=== PATIENT | male | born 1980 | race Caucasian/White ===

== ENCOUNTER → 2020-10-28 10:15 | Outpatient (BNVA) | payer OTHER, SELFPAY | PROVIDERS: Visit Provider Surgery | DX: K64.9 Unspecified hemorrhoids (principal); Z86.010 Personal history of colon polyps | CPT/HCPCS: 87635 ==

== ENCOUNTER 2020-11-04 07:44 | Day surgery (SDC) | payer OTHER, SELFPAY ==
[2020-11-01 14:06] VITALS: BMI 27.2
[2020-11-04] VITALS (7 sets, daily range): BP systolic 99–128; BP diastolic 64–73; PULSE 62–76; RESP 17–18; TEMP 36.2–36.8; O2SAT 96–99
--- NOTE | 2020-11-04 07:54 | W.PM.OPSUD ---
Surgery/Procedure H&P Update DATE OF PROCEDURE: November 04, 2020 DATE H&P PERFORMED: 10/28/20 H&P UPDATE INFORMATION: I have reviewed H&P completed within last 30 days, I have examined patient prior to procedure and No changes to prior documentation PREOP DIAGNOSIS: Hemorrhoids, colon polyps PLANNED PROCEDURE: Operation Date: 11/04/20 09:10 Proposed Procedures p Banding of Hemorrhoids [id number] Z86.010(Not Applicable) - Leandro Kumari MD s Colonoscopy(Not Applicable) - Leandro Kumari MD
[2020-11-04] MEDS: sodium chloride 0.9% 1,000 ML 30 ML IV (08:10)
--- NOTE | 2020-11-04 08:23 | ANES.PREANE2 ---
Pre-Anesthetic Assessment Pre-Anesthetic Assessment: Height/Weight: Height 1.91 m Weight 98.883 kg Temp Pulse Resp BP Pulse Ox 97.2 F L 62 18 128/72 96 11/04/20 08:02 11/04/20 08:02 11/04/20 08:02 11/04/20 08:02 11/04/20 08:02 Preop Diagnosis: Hemorrhoids, colon polyps Proposed Procedure: Operation Date: 11/04/20 09:10 Proposed Procedures p Banding of Hemorrhoids [id number] Z86.010(Not Applicable) - Leandro Kumari MD s Colonoscopy(Not Applicable) - Leandro Kumari MD Familial anesthetic complications: None Was Beta Otoniel taken within 24 hours: N/A Was Clonidine taken within 24 hours: N/A Last intake: Intake NPO > 8 hrs Last Liquid Date 11/03/20 Last Solid Date 11/02/20 Social: Social History: No alcohol and No tobacco Exam: Pre-Anes Outpt Exam: alert, oriented x 3, clear to auscultation bilaterally and regular rate & rhythm Airway: Cervical ROM: WNL MP: 3 Dentition: Other (crown) Anesthetic Plan: ASA status: 1 Anesthesia: MAC Risk of > 500 ml blood loss (7ml/kg in children): No Meds/Allergies Current Medications: Current Medications Generic Name Dose Route Start Last Admin Trade Name Freq PRN Reason Stop Dose Admin Sodium Chloride 1,000 mls @ 30 ml s/hr 11/04/20 08:00 11/04/20 08:10 Sodium Chloride 0.9% IV 11/05/20 07:59 30 mls/hr .Q24H CALLIE Administration PFSH Anesthesia PFSH: Medical History (Updated 10/28/20 @ 09:46 by Leandro Kumari MD) Folate deficiency anemia Hemorrhoids History of colon polyps Major depressive disorder Surgical History (Updated 10/28/20 @ 09:46 by Leandro Kumari MD) History of colonoscopy History of hemorrhoidectomy History of shoulder surgery Right Family History (Updated 10/28/20 @ 09:38 by CARY Hall) Denies family history of Anesthesia complication Bleeding disorder Social History (Updated 10/28/20 @ 09:38 by CARY Hall) Smoking and tobacco status: former smoker Alcohol intake: current Alcohol intake frequency: holidays/special occasions only Data Anesthesia Cardiac Studies: No Data to Display
--- NOTE | 2020-11-04 09:48 | PM.OP ---
Operative Report Date of procedure: November 04, 2020 Pre-op Diagnosis: 1. Colon polyps 2. Symptomatic grade 1 hemorrhoids Post-op Diagnosis: Normal colonoscopy Grade 1 hemorrhoids x3 Procedure Done: Colonoscopy past splenic flexure without biopsy Banding of hemorrhoids x3 Pathology: none sent Surgeon: Leandro Kumari Anesthesia: General Condition: stable Disposition: PACU Procedure: The patient was in the operating room and placed in the flat position under MAC. A colonoscope was introduced and advanced up to the cecum and slowly withdrawn. The colon prep was fair. Cecum: Normal Ascending colon: Normal Transverse colon: Normal Descending colon: Normal Sigmoid colon: Normal Rectum: Grade 1 hemorrhoids FELECIA: Grade 1 hemorrhoids Using the anoscope the grade 1 hemorrhoids was visualized and banding of hemorrhoids x3 was performed using a band applicator with the bands being applied proximal to the dentate line. The patient was transferred to recovery room in stable condition
--- NOTE | 2020-11-04 17:43 | ANE.PACU2 ---
Inpatient post-anesthesia follow up: Airway intact: Yes Vital signs: Temperature 98.2 F Pulse Rate 64 Respiratory Rate 18 Blood Pressure 107/72 Pulse Oximetry 97 Oxygen Delivery Me thod Room Air Oxygen Flow Rate 6 Fraction of Inspir ed Oxygen Hydration adequate: Yes Nausea and vomiting: No Pain level: 3 Mental status: Baseline
== END 2020-11-04 10:50 | disposition home or self-care (01) ==
PROVIDERS: Visit Provider Surgery
PROC: (CPT 45378; principal; 2020-11-04 09:00)
PROC: 0DJD8ZZ Inspection of Lower Intestinal Tract, Via Natural or Artificial Opening Endoscopic (ICD-10-PCS; CPT 45378; 2020-11-04 09:00)
DX: Z86.010 Personal history of colon polyps (principal); K64.0 First degree hemorrhoids; F32.9 Major depressive disorder, single episode, unspecified; Z87.891 Personal history of nicotine dependence; Z80.0 Family history of malignant neoplasm of digestive organs
CPT/HCPCS: 45378; 46221; J2704; J3010; J7030

== ENCOUNTER → 2022-03-26 15:18 | Outpatient (BNVA) | payer OTHER, SELFPAY | PROVIDERS: PCP Family Medicine; Visit Provider Surgery | DX: K40.90 Unilateral inguinal hernia, without obstruction or gangrene, not specified as recurrent (principal) | CPT/HCPCS: 99203 ==

== ENCOUNTER → 2022-04-08 16:19 | Outpatient (BNVA) | payer OTHER, SELFPAY | PROVIDERS: PCP Family Medicine; Referring Provider Family Medicine; Visit Provider Podiatrist Foot & Ankle Surgery | DX: S82.892A Other fracture of left lower leg, initial encounter for closed fracture (principal); S92.355A Nondisplaced fracture of fifth metatarsal bone, left foot, initial encounter for closed fracture; X50.9XXA Other and unspecified overexertion or strenuous movements or postures, initial encounter; M76.72 Peroneal tendinitis, left leg | CPT/HCPCS: 28470; 73630; 99204 ==

== ENCOUNTER → 2022-04-10 11:20 | Outpatient (BNVA) | payer OTHER, SELFPAY | PROVIDERS: PCP Family Medicine; Referring Provider Family Medicine; Visit Provider Orthopaedic Surgery | DX: S63.502A Unspecified sprain of left wrist, initial encounter (principal); W05.1XXA Fall from non-moving nonmotorized scooter, initial encounter | CPT/HCPCS: 73110; 99202 ==

== ENCOUNTER → 2023-05-10 14:38 | Outpatient (BNVA) | payer OTHER, SELFPAY | PROVIDERS: PCP Family Medicine; Referring Provider Family Medicine; Visit Provider Dermatology | DX: L40.0 Psoriasis vulgaris (principal); L81.4 Other melanin hyperpigmentation; L21.8 Other seborrheic dermatitis; L82.0 Inflamed seborrheic keratosis | CPT/HCPCS: 17110; 99204 ==